=== PATIENT | male | born 1950 | race Hispanic/Latino ===

== ENCOUNTER 2020-03-19 05:44 | Day surgery (SDC) | payer OTHER ==
[~2020-03-19] VITALS: Ht 175.3 cm; Wt 68.9 kg
[~2020-03-19 05:44] MED LIST: ALBU0.63 IH; ALEN35TA51 PO; ASPI-556 PO; BENA20TA10 PO; CETI10TA57 PO; CLOP75TA32 PO; FLUT100D3 IH; FURO20TA4 PO; IPRA4AER IH; LEVO137T2 PO; MOME17N NS; MONT10TA96 PO; SIMV-46 PO; TAMS0.4C32 PO; TOLT2CAP21 PO
[2020-03-19 06:21] VITALS: BP 122/67
[2020-03-19] MEDS ORDERED: SODIUM CHLORIDE 0.9% 1000ML 1,000 ML IV ONE (06:44)
[2020-03-19] MEDS ORDERED: PROPOFOL 10 MG/ML 20ML VIAL IV ONE (07:08)
[2020-03-19] MEDS ORDERED: LIDOCAINE HCL 1% 20 ML VIAL ONE (07:08)
[2020-03-19 07:25] VITALS: BP 98/41
[2020-03-19 07:30] VITALS: BP 100/41
[2020-03-19 07:35] VITALS: BP 103/50
[2020-03-19 07:40] VITALS: BP 107/48
== END 2020-03-19 08:00 | disposition home or self-care (01) ==
LOC: DAH 05:44
PROVIDERS: ATTEND Internal Medicine Gastroenterology
DX: R10.13 Epigastric pain (principal); Z20.828 Contact with and (suspected) exposure to other viral communicable diseases; K44.9 Diaphragmatic hernia without obstruction or gangrene; K29.60 Other gastritis without bleeding; B96.81 Helicobacter pylori [H. pylori] as the cause of diseases classified elsewhere; R14.0 Abdominal distension (gaseous); I11.0 Hypertensive heart disease with heart failure; I50.9 Heart failure, unspecified; I25.10 Atherosclerotic heart disease of native coronary artery without angina pectoris; E78.5 Hyperlipidemia, unspecified; E89.0 Postprocedural hypothyroidism; R68.81 Early satiety; Z88.0 Allergy status to penicillin; J45.909 Unspecified asthma, uncomplicated; Z79.899 Other long term (current) drug therapy; Z79.82 Long term (current) use of aspirin; Z98.890 Other specified postprocedural states; Z79.890 Hormone replacement therapy; Z90.49 Acquired absence of other specified parts of digestive tract; Z86.010 Personal history of colon polyps; Z87.19 Personal history of other diseases of the digestive system
CPT/HCPCS: 43239; 93005; A4215; A4221; A4222; A4223; A4606; A4620; A4663; C9803; J2704; J7030; U0003